=== PATIENT | male | born 1985 | race Caucasian/White ===

== ENCOUNTER 2019-03-22 21:06 | Emergency (ER) | payer MEDICAID ==
[~2019-03-22] VITALS: Ht 180.3 cm; Wt 66.8 kg
--- NOTE | 2019-03-22 21:16 | NUR ---
NIL X1
[2019-03-22 21:19] VITALS: BP 132/78
[2019-03-22] MEDS ORDERED: ONDANSETRON 2MG/ML, 2ML IVPush ONE (23:00)
[2019-03-22] MEDS ORDERED: SODIUM CHLORIDE FLUSH 10ML SYR IVF ONE (23:00)
[2019-03-22] MEDS ORDERED: SODIUM CHLORIDE 0.9% 1,000ML IVBOLUS ONE (23:00)
--- NOTE | 2019-03-23 | NUR ---
called, not in lobby
--- NOTE | 2019-03-23 00:25 | NUR ---
[id number]
== END 2019-03-23 00:27 | disposition left against medical advice (07) ==
LOC: ED 03-23 00:16
DX: R10.33 Periumbilical pain (principal); R11.2 Nausea with vomiting, unspecified; R19.7 Diarrhea, unspecified
CPT/HCPCS: 99281